=== PATIENT | male | born 1980 | race Two or more races ===

== ENCOUNTER 2017-05-22 18:28 | Inpatient (IN) | payer OTHER ==
[~2017-05-22] VITALS: Ht 177.8 cm; Wt 103.9 kg
[2017-05-22] MEDS ORDERED: IBUPROFEN 600 MG TAB PO STA (20:10)
[2017-05-22 21:11] LABS: BILIRUBIN,URINE NEGATIVE (NEGATIVE); KETONES,URINE NEGATIVE (NEGATIVE); LEUKOCYTE ESTERASE ,URINE TRACE (NEGATIVE); NITRITE,URINE NEGATIVE (NEGATIVE); URINE UROBILINOGEN 0.2 mg/dL (0.2 - 1)
--- NOTE | 2017-05-22 21:16 | Diagnostic Imaging Report ---
EXAM: CT ABDOMEN AND PELVIS without IV CONTRAST DATE: 05/22/2017 8:10 PM Time stamp on Exam: 2033 hours INDICATION: Abdominal pain, hematuria, left flank pain COMPARISON: None TECHNIQUE: The abdomen and pelvis were scanned using a multidetector helical scanner. Coronal and sagittal reformations were obtained. Renal stone protocol performed. IV Contrast: None Oral Contrast: None CTDIvol has been reviewed. It is below the limits set by the Radiation Protocol Committee (RPC). FINDINGS: LOWER THORAX: No consolidations LIVER: No masses BILIARY: The gallbladder is unremarkable. No ductal dilation. SPLEEN: No masses PANCREAS: No masses ADRENALS: No nodules RIGHT KIDNEY: No nephroureterolithiasis or hydronephrosis. LEFT KIDNEY: There is a 9 mm stone at the left ureterovesicular junction resulting in moderate hydroureteronephrosis, renal edema and mild perinephric fat stranding. GI TRACT: No distention, wall thickening or evidence of obstruction. Normal appendix. VESSELS: Unremarkable PERITONEUM/RETROPERITONEUM: No free air or fluid LYMPH NODES: No lymphadenopathy REPRODUCTIVE ORGANS: Unremarkable BLADDER: Unremarkable SOFT TISSUES: Unremarkable BONES: No suspicious bone lesions. IMPRESSION: Left ureterovesicular junction 9 mm stone resulting in moderate left hydroureteronephrosis. Signed by: Dr. Erica Alas M.D. on 05/22/2017 9:13 PM
[2017-05-22 21:21] LABS: CLARITY,URINE CLEAR (CLEAR); COLOR,URINE AMBER (YELLOW); PROTEIN,URINE DIPSTICK 1+ (NEGATIVE)
[2017-05-22 21:23] LABS: RBC,URINE 21-50 /HPF (0-5); WBC,URINE (MAN) 0-5 /HPF (0-5)
[2017-05-22] MEDS ORDERED: HYDROMORPHONE 1MG/1ML INJ IV STA (21:23)
[2017-05-22] MEDS ORDERED: SODIUM CHLORIDE 0.9% 500ML 500 ML IV ONE (21:45)
[2017-05-22 21:52] LABS: BASOPHILS # (AUTO) 0.1 (0.0-0.1); BASOPHILS % 0.4 % (0.0-1.0); EOSINOPHILS # (AUTO) 0.2 (0.0-0.4); EOSINOPHILS % 0.9 % (0.0-6.0); HEMATOCRIT 43.7 % (38.2-49.6); HEMOGLOBIN 15.3 g/dL (14.0-18.0); LYMPHOCYTES % 10.7 % (18.0-39.1); MEAN CORPUSCULAR HEMOGLOBIN 30.9 pg (28-32); MEAN CORPUSCULAR VOLUME 88.3 fL (81-99); MONOCYTES # (AUTO) 1.1 (0.2-0.8); MONOCYTES % 5.9 % (4.4-11.3); NEUTROPHILS # (AUTO) 15.1 (2.1-6.9); NEUTROPHILS % 81.7 % (38.7-80.0); PLATELET COUNT 398 x10e3/uL (140-360); RED BLOOD COUNT 4.95 x10e6/uL (4.3-5.7); RED CELL DISTRIBUTION WIDTH 12.5 % (11.7-14.4)
[2017-05-22] MEDS: CEFTRIAXONE SOD 1 GM VIAL IV SCH (21:55)
[2017-05-22 22:06] LABS: ALANINE AMINOTRANSFERASE 34 IU/L (0-55); ALBUMIN 4.1 g/dL (3.5-5.0); ALBUMIN/GLOBULIN RATIO 1.2 (0.8-2.0); ALKALINE PHOSPHATASE 76 IU/L (40-150); ANION GAP 12.9 mmol/L (8-16); BLOOD UREA NITROGEN 16 mg/dL (7-26); BUN/CREATININE RATIO 12 (6-25); CALCIUM 9.3 mg/dL (8.4-10.2); CARBON DIOXIDE 24 mmol/L (22-29); CHLORIDE 106 mmol/L (98-107); CREATININE, SERUM 1.34 mg/dL (0.72-1.25); EST GLOMERULAR FILTRATION RATE > 60 ML/MIN (60-); GLUCOSE 93 mg/dL (74-118); POTASSIUM 3.9 mmol/L (3.5-5.1); SODIUM 139 mmol/L (136-145)
[2017-05-22] MEDS: SODIUM CHLORIDE 0.9% 1000ML 1,000 ML IV SCH (22:31)
[2017-05-23] VITALS (7 sets, daily range): BP systolic 116–134; BP diastolic 67–82
[2017-05-23] MEDS: HYDROMORPHONE 1MG/1ML INJ IV PRN ×4 (01:35→20:47)
[2017-05-23] MEDS: SODIUM CHLORIDE 0.9% 1000ML 1,000 ML IV SCH ×2 (02:58→08:59)
[2017-05-23 06:25] LABS: BASOPHILS # (AUTO) 0.1 (0.0-0.1); BASOPHILS % 0.5 % (0.0-1.0); EOSINOPHILS # (AUTO) 0.5 (0.0-0.4); EOSINOPHILS % 3.7 % (0.0-6.0); HEMATOCRIT 40.1 % (38.2-49.6); HEMOGLOBIN 13.9 g/dL (14.0-18.0); LYMPHOCYTES # (AUTO) 4.1 (1.0-3.2); LYMPHOCYTES % 32.2 % (18.0-39.1); MEAN CORPUSCULAR HEMOGLOBIN 30.6 pg (28-32); MEAN CORPUSCULAR HGB CONC 34.7 g/dL (31-35); MEAN CORPUSCULAR VOLUME 88.3 fL (81-99); MONOCYTES # (AUTO) 1.3 (0.2-0.8); NEUTROPHILS # (AUTO) 6.7 (2.1-6.9); NEUTROPHILS % 53.2 % (38.7-80.0); PLATELET COUNT 352 x10e3/uL (140-360); RED BLOOD COUNT 4.54 x10e6/uL (4.3-5.7); RED CELL DISTRIBUTION WIDTH 12.4 % (11.7-14.4)
[2017-05-23 07:02] LABS: ANION GAP 10.8 mmol/L (8-16); BLOOD UREA NITROGEN 16 mg/dL (7-26); BUN/CREATININE RATIO 14 (6-25); CALCIUM 8.4 mg/dL (8.4-10.2); CARBON DIOXIDE 22 mmol/L (22-29); CHLORIDE 110 mmol/L (98-107); CREATININE, SERUM 1.16 mg/dL (0.72-1.25); EST GLOMERULAR FILTRATION RATE > 60 ML/MIN (60-); GLUCOSE 91 mg/dL (74-118); POTASSIUM 3.8 mmol/L (3.5-5.1); SODIUM 139 mmol/L (136-145)
[2017-05-23] MEDS ORDERED: IOPAMIDOL 610MG/1ML 300 MG/ML VIAL IV ONE (12:05)
[2017-05-23] MEDS ORDERED: MEPERIDINE HCL INJ 50 MG/ML INJ ONE (13:48)
[2017-05-23] MEDS ORDERED: FENTANYL CITRATE/PF 100MCG/2 ML INJ ONE (13:59)
[2017-05-23] MEDS ORDERED: MIDAZOLAM HCL 2 MG/2 ML VIAL ONE (13:59)
[2017-05-23] MEDS ORDERED: MORPHINE SULFATE 5 MG/ML VIAL ONE (14:11)
[2017-05-23] MEDS ORDERED: SEVOFLURANE INHAL SOLN 250 ML PEN BTL ONE (14:29)
[2017-05-23] MEDS ORDERED: ONDANSETRON HCL INJ 2 MG/ML VIAL ONE (14:29)
[2017-05-23] MEDS ORDERED: DEXAMETHASONE SOD PHOS INJ 4 MG/ML VIAL ONE (14:29)
[2017-05-23] MEDS ORDERED: PROPOFOL IV EMULSION 10 MG/ML 20 ML VIAL ONE (14:29)
[2017-05-23] MEDS ORDERED: LIDOCAINE HCL 2% LOCAL INJ 5 ML SDV VIAL INJ ONE (14:29)
[2017-05-23] MEDS: ONDANSETRON HCL INJ 2 MG/ML VIAL IV PRN ×2 (15:19→20:32)
--- NOTE | 2017-05-23 20:01 | Consultation ---
DATE OF CONSULTATION: May 23, 2017 UROLOGY CONSULTATION REASON FOR CONSULTATION: Renal colic on the left side. HISTORY OF PRESENT ILLNESS: This is a 36-year-old patient who was admitted to the hospital presenting with renal colic on the left side and patient did have a CT scan that demonstrates obstructing 9 mm stone in the distal left ureter with hydronephrosis and hydroureter. The patient stated he did have previous stones that were treated at [facility]. He stated that as far as he remembers, the stones were on the left side. REVIEW OF SYSTEMS: Twelve systems reviewed except for current pain and discomfort, minimal nausea, all other systems were negative. PAST MEDICAL HISTORY: Renal calculi. PAST SURGICAL HISTORY: Did not have previous surgery except what was done for the stone. MEDICATIONS: See MAR. ALLERGIES: NOT KNOWN. SOCIAL HISTORY: Patient currently is tobacco smoker, cigarettes one pack per day. Occasional alcohol use. No use of illicit drugs. PHYSICAL EXAMINATION: GENERAL: The patient is alert and oriented x3. Does not seem to be in acute distress. VITALS: Blood pressure 140/80, pulse 88, temperature 97, respirations 16. HEENT: Symmetric. Eyes normal movement. NECK: No JVD or masses. CHEST: Clear. HEART: Regular. ABDOMEN: Soft. EXTERNAL GENITALIA: Unremarkable. ABDOMEN: Left CVA tenderness. EXTREMITIES: Lower extremities no edema, moves all. LABORATORY DATA: Reviewed. White blood cells 12.6, hemoglobin 13.9. Electrolytes normal. Creatinine 1.16, BUN 16. Total bilirubin 0.3. Alkaline phosphatase 76. IMPRESSION: 1. Left renal colic. 2. Left ureterolithiasis. 3. Left hydronephrosis. 4. Left hydroureter. 5. Microhematuria. PLAN: Option of treatment discussed with the patient and he was advised due to the high level of obstruction instrumentation should be done. with attempt to remove the stone or at least place a double J stent. Patient concurred with this and will proceed with the procedure. Job#: [id number]
[2017-05-23] MEDS: CEFTRIAXONE SOD 1 GM VIAL IV SCH (20:32)
[2017-05-24 00:30] VITALS: BP 107/60
[2017-05-24] MEDS: SODIUM CHLORIDE 0.9% 1000ML 1,000 ML IV SCH ×3 (03:21→22:05)
[2017-05-24 04:53] VITALS: BP 115/62
[2017-05-24 07:11] LABS: BASOPHILS % 0.2 % (0.0-1.0); EOSINOPHILS # (AUTO) 0.2 (0.0-0.4); EOSINOPHILS % 1.7 % (0.0-6.0); HEMATOCRIT 39.6 % (38.2-49.6); HEMOGLOBIN 13.9 g/dL (14.0-18.0); LYMPHOCYTES # (AUTO) 2.9 (1.0-3.2); MEAN CORPUSCULAR HGB CONC 35.1 g/dL (31-35); MEAN CORPUSCULAR VOLUME 88.4 fL (81-99); MONOCYTES # (AUTO) 0.9 (0.2-0.8); MONOCYTES % 7.5 % (4.4-11.3); NEUTROPHILS % 66.3 % (38.7-80.0); PLATELET COUNT 349 x10e3/uL (140-360); RED BLOOD COUNT 4.48 x10e6/uL (4.3-5.7); RED CELL DISTRIBUTION WIDTH 12.4 % (11.7-14.4)
[2017-05-24 07:36] VITALS: BP 117/75
[2017-05-24 07:55] LABS: ALANINE AMINOTRANSFERASE 21 IU/L (0-55); ALBUMIN 3.2 g/dL (3.5-5.0); ALBUMIN/GLOBULIN RATIO 1.1 (0.8-2.0); ALKALINE PHOSPHATASE 67 IU/L (40-150); BLOOD UREA NITROGEN 17 mg/dL (7-26); BUN/CREATININE RATIO 17 (6-25); CALCIUM 8.4 mg/dL (8.4-10.2); CARBON DIOXIDE 23 mmol/L (22-29); CHLORIDE 110 mmol/L (98-107); CREATININE, SERUM 1.02 mg/dL (0.72-1.25); EST GLOMERULAR FILTRATION RATE > 60 ML/MIN (60-); GLUCOSE 96 mg/dL (74-118); SODIUM 139 mmol/L (136-145)
[2017-05-24] MEDS: HYDROMORPHONE 1MG/1ML INJ IV PRN ×3 (11:05→21:10)
[2017-05-24 11:32] VITALS: BP 130/58
[2017-05-24 15:31] VITALS: BP 137/77
[2017-05-24 20:00] VITALS: BP 122/59
[2017-05-24] MEDS: CEFTRIAXONE SOD 1 GM VIAL IV SCH (21:10)
[2017-05-24] MEDS: ONDANSETRON HCL INJ 2 MG/ML VIAL IV PRN (21:10)
[2017-05-25] VITALS: BP 112/55
[2017-05-25 04:00] VITALS: BP 119/74
[2017-05-25] MEDS ORDERED: ACETAMINOPHEN/CODEINE 300MG - 30MG TAB PO PRN (07:00)
[2017-05-25 08:15] VITALS: BP 121/68
[2017-05-25] MEDS: SODIUM CHLORIDE 0.9% 1000ML 1,000 ML IV SCH (08:57)
[2017-05-25] MEDS ORDERED: HYDROMORPHONE 2MG/ML INJ IV PRN (09:45)
[2017-05-25 13:09] VITALS: BP 136/83
[2017-05-25 16:33] VITALS: BP 116/60
== END 2017-05-25 17:10 | disposition home or self-care (01) | DRG 670 ==
LOC: ER 18:28 → ERHOLD 23:27 → IMCU 23:45 → OBSVTOIN 05-24 12:15 → MED/SURG 05-24 17:15
PROVIDERS: ADMIT Internal Medicine; ATTEND Internal Medicine
PROC: 0TC78ZZ Extirpation of Matter from Left Ureter, Via Natural or Artificial Opening Endoscopic (ICD-10-PCS; 2017-05-23)
PROC: BT1B1ZZ Fluoroscopy of Bladder and Urethra using Low Osmolar Contrast (ICD-10-PCS; 2017-05-23)
PROC: 0T778DZ Dilation of Left Ureter with Intraluminal Device, Via Natural or Artificial Opening Endoscopic (ICD-10-PCS; principal; 2017-05-23 12:32)
DX: N13.2 Hydronephrosis with renal and ureteral calculous obstruction (principal); N17.9 Acute kidney failure, unspecified; F17.210 Nicotine dependence, cigarettes, uncomplicated
CPT/HCPCS: 36415; 74176; 74420; 80048; 80053; 81001; 85025; 87086; 88300; 99284; C2617; G0378; J0696; J1100; J1170; J2001; J2175; J2250; J2270; J2405; J7030; J7040

== ENCOUNTER → 2017-06-27 | Day surgery (SDC) | payer OTHER ==
[~2017-06-27] MED LIST: CEFAZOLIN SOD 1 GM VIAL ONE; DEXAMETHASONE SOD PHOS INJ 4 MG/ML VIAL ONE; FENTANYL CITRATE/PF 100MCG/2 ML INJ ONE; IOPAMIDOL 610MG/1ML 300 MG/ML VIAL IV ONE; LIDOCAINE HCL 2% LOCAL INJ 5 ML SDV VIAL INJ ONE; MIDAZOLAM HCL 2 MG/2 ML VIAL ONE; ONDANSETRON HCL INJ 2 MG/ML VIAL ONE; PROPOFOL IV EMULSION 10 MG/ML 20 ML VIAL ONE; SEVOFLURANE INHAL SOLN 250 ML PEN BTL ONE; ULTRAM50 MG PO
--- NOTE | 2017-06-27 23:55 | Operative Report ---
DATE OF PROCEDURE: June 27, 2017 SERVICE: Urology PREOPERATIVE DIAGNOSES 1. Left nephrolithiasis. 2. Left hydronephrosis. 3. Left double J-stent. 4. Microhematuria. 5. Renal colic. POSTOPERATIVE DIAGNOSES 1. Left nephrolithiasis. 2. Left hydronephrosis. 3. Left double J-stent. 4. Microhematuria. 5. Renal colic. OPERATIONS PERFORMED 1. Cystoscopy and removal of double J-stent from the left side. 2. Left retrograde pyelograms under fluoroscopic control. 3. Left ureteroscopy with laser fragmentation of stone. 4. Placement of double J-stent, 7-Bolivian, 26 cm long to the left side. 5. Interpretation of x-ray. Radiologist not present. 6. Supervision of fluoroscopy. Radiologist not present. BEST WORKER: None. ANESTHESIA: General. CLINICAL INDICATION NOTE: This is a 36-year-old patient with a history of nephrolithiasis. Has a double J-stent in place. The patient was brought for reassessment and possible laser fragmentation of any additional stones. Procedure was discussed with the patient. He is aware that he may require a double J-stent again. DESCRIPTION OF PROCEDURE AND FINDINGS: After proper anesthesia was achieved, the patient was placed in the lithotomy position, prepped and draped in a sterile fashion. Urethra inspected and is unremarkable. The orifice is normal. Bladder mucosa demonstrated some inflammatory changes. Some edema along the left ureteral orifice. A double J-stent is protruding. It was pulled out. The guidewire was inserted and retrograde pyelograms were done under fluoroscopic control. No intrinsic obstruction. A question of a filling defect in the upper ureter and lower pelvis was noticed with minimal dilation. An extra guidewire was placed as a safety and a flexible ureteroscopy was done. Irregular areas, as well as small fragment of stone were identified and fragmented with the Holmium laser using a 200 fiber. Due to the irregular area and some edema, it was elected to reposition the double J-stent. The guidewire was kept in place, and a 26-cm, 7-Bolivian double J-stent was properly positioned on the left side. The bladder was then irrigated. The scope was removed. Patient was transferred in satisfactory condition to the recovery room. He will be followed as an outpatient. Job#: [id number] [place]
== END | disposition home or self-care (01) ==
LOC: OR 11:59
PROVIDERS: ATTEND Urology
DX: N20.0 Calculus of kidney (principal); N13.30 Unspecified hydronephrosis; Z46.6 Encounter for fitting and adjustment of urinary device
CPT/HCPCS: 52356; 74420; J0690; J1100; J2001; J2250; J2405; Q9967